=== PATIENT | male | born 1950 | race Caucasian/White ===

== ENCOUNTER 2019-07-09 19:26 | Inpatient (IN) | payer MEDICARE ==
[~2019-07-09 19:26] MED LIST: Dexamethasone 20 MG/5 ML VIAL ONE; Lidocaine 1% PF 5 ML VIAL ONE; Ondansetron PF 4 MG/2 ML Vial ONE; PHENYLEPHRINE-NS 100 MCG/ML 10 ML SYRINGE ONE; PROPOFOL 200 MG/20 ML VIAL ONE; ePHEDrine/0.9% NaCl/PF SYRINGE 50 mg/10 ml ONE
[2019-07-09] MEDS ORDERED: Bupivacaine PF 0.5% 30 ML VIAL ONE (19:33)
[2019-07-09] MEDS ORDERED: Betamet Acet/Betamet Na Ph 30 MG/5 ML VIAL ONE (19:33)
[2019-07-09] MEDS ORDERED: Heparin 10,000 UNITS/1 ML VIAL ONE (19:33)
[2019-07-09] MEDS ORDERED: Lidocaine 2% PF 5 ML VIAL ONE (19:34)
[2019-07-09] MEDS ORDERED: Hetastarch 6% 500 ML 0 ML ONE (19:34)
[2019-07-09] MEDS ORDERED: Bacitracin Zinc Ointment 30 gm TUBE ONE (19:34)
[2019-07-09] MEDS ORDERED: Sodium Chloride 0.9% 30 ML ONE ×2 (19:34→20:18)
[2019-07-09] MEDS ORDERED: Lidocaine 2% Jelly 5 ML TUBE ONE (19:46)
[2019-07-09] MEDS ORDERED: Fentanyl 100 MCG/2 ML VIAL ONE (19:46)
[2019-07-09] MEDS ORDERED: Vancomycin HCl 500 MG VIAL ONE (20:05)
[2019-07-09] MEDS ORDERED: Fentanyl 100 MCG/2 ML VIAL SLOW IVP PRN (20:24)
[2019-07-09] MEDS ORDERED: HYDROcodone/Acetaminophen 5/325 mg Tablet PO PRN (20:24)
[2019-07-09] MEDS ORDERED: Milk Of Magnesia 30 ML UDCUP PO PRN (20:24)
[2019-07-09] MEDS ORDERED: Promethazine HCl 25 MG/ML VIAL IM PRN (20:24)
[2019-07-09] MEDS ORDERED: Morphine 4 MG/ML VIAL SLOW IVP PRN (20:24)
[2019-07-09] MEDS ORDERED: Ondansetron PF 4 MG/2 ML Vial IV PRN (20:24)
[2019-07-09] MEDS ORDERED: Acetaminophen 325 MG TAB PO PRN (20:24)
[2019-07-09] MEDS ORDERED: Meperidine HCl/PF 25 MG/ML VIAL IM PRN (20:28)
[2019-07-09] MEDS ORDERED: Vancomycin HCl 1 GM in Premix Bag 1 BAG IVPB SCH (21:00)
[2019-07-10] MEDS ORDERED: Ondansetron HCl/PF 4 MG/2 ML Vial IVP PRN (00:25)
[2019-07-10] MEDS ORDERED: Promethazine HCl 25 MG/ML VIAL IM PRN (00:25)
[2019-07-10] MEDS ORDERED: Promethazine HCl 25 MG/ML VIAL SLOW IVP PRN (00:25)
[2019-07-10] MEDS ORDERED: Fentanyl 100 MCG/2 ML VIAL ONE (02:46)
[2019-07-10 04:14] VITALS: BMI 32.8
[2019-07-10] MEDS: Sodium Chloride 0.9% 1,000 ML IV SCH ×3 (04:30→16:26)
[2019-07-10] MEDS: Aspirin 81 mg Enteric Coated Tablet PO SCH ×3 (04:30→20:21)
[2019-07-10] MEDS: Ketorolac Tromethamine 30 MG/ML VIAL IVP SCH ×5 (04:43→23:27)
[2019-07-10] MEDS ORDERED: Vancomycin HCl 1 GM in Premix Bag 1 BAG IVPB SCH (04:45)
[2019-07-10] MEDS ORDERED: TETANUS AND DIPHTHERIA TOX/PF 0.5 ML DISP.SYRIN IM SCH (04:45)
[2019-07-10] MEDS: traMADol HCl 50 MG TAB PO PRN ×2 (06:31→20:21)
[2019-07-10 06:38] LABS: Anion Gap 13 mmol/L (10-20); BUN (Urea Nitrogen) 15 mg/dL (8.4-25.7); Calc. Creatinine Clearance 110 mL/min (70-130); Calcium 8.6 mg/dL (7.8-10.44); Carbon Dioxide 22 mmol/L (23-31); Chloride 108 mmol/L (98-107); Estimated GFR-MDRD Greater than 90; Glucose 150 mg/dL (80-115); Potassium 4.3 mmol/L (3.5-5.1); Sodium 139 mmol/L (136-145)
--- NOTE | 2019-07-10 08:03 | RAD ---
Exam:Intraoperative fluoroscopy HISTORY: ORIF. There are multiple fractures. COMPARISON: None FINDINGS: Single intraoperative fluoroscopic views submitted for interpretation and demonstrates the first digit. Exposure: 1.25 mg. 67.6 seconds. IMPRESSION: Intraoperative fluoroscopy as above.
[2019-07-10] MEDS ORDERED: FLU VACC TS2019-20(65YR UP)/PF 180 MCG/0.5 ML SYRINGE IM ONE (09:00)
[2019-07-10] MEDS ORDERED: Prevnar 13-Val Conj/PF 0.5 ML SYRINGE IM ONE (09:00)
[2019-07-10] MEDS: Vancomycin HCl 1.25 GM in Sodium Chloride 0.9% 250 ML 250 ML IVPB SCH (16:26)
[2019-07-11] MEDS: Sodium Chloride 0.9% 1,000 ML IV SCH ×2 (03:48→12:55)
[2019-07-11] MEDS: Vancomycin HCl 1.25 GM in Sodium Chloride 0.9% 250 ML 250 ML IVPB SCH (04:09)
[2019-07-11] MEDS: Aspirin 81 mg Enteric Coated Tablet PO SCH (08:36)
--- NOTE | 2019-07-11 10:07 | OP ---
DATE OF PROCEDURE: 07/10/2019 DATE OF SURGERY START: 07/09/2019. DATE OF SURGERY END: 07/10/2019. PREOPERATIVE DIAGNOSES: Left thumb and small finger table saw contact with the following diagnosis. 1. Left small finger. a. 7 cm wound. b. Open grade 2 proximal phalanx fracture. c. Intercalary bone loss, proximal phalanx. d. Small finger ulnar side lateral band laceration. e. Flexor digitorum superficialis laceration zone 2, complete. f. Flexor digitorum profundus laceration zone 2, complete. g. A2 isabel laceration with near obliteration of isabel. h. Radial digital nerve laceration. i. Ulnar digital nerve laceration. j. Mild contamination of the wound with a few saw particles. 2. Left thumb. a. 5 cm wound. b. Small fracture distal phalanx, base of the distal volar plate. c. Grade 1 open fracture without bony instability. d. Radial digital nerve laceration. e. Ulnar digital nerve laceration, intact ulnar arterial circulation. f. Flexor pollicis longus laceration, zone 1 with intact oblique isabel. g. Minimal wound particle contamination. INDICATION: The patient had a table saw contact, just the small finger and the thumb palmar base primary lacerations, but had grossly intact circulation verified with the visualization of intact neurovascular bundle and intact vascular supplies x1 digital artery to each digit. PROCEDURES PERFORMED: 1. Small finger. a. Debridement of wound. b. Closure of complex wound. c. Debridement of material associated with open fracture. d. Open reduction and internal fixation, proximal phalanx fracture using K-wires, intramedullary. e. Microscopic digital nerve neuroplasty. f. Microscopic radial digital nerve repair. g. Microscopic digital ulnar nerve. h. Open flexor digitorum superficialis repair zone 2. i. Open flexor digitorum profundus repair, zone 2. j. Open A2 isabel partial repair with variable material. k. Closure of wound, 7 cm complex. l. Microscopic visualization for nerve repair and neuroplasty. 2. Thumb. a. Debridement of wound. b. Debridement of material associated with open fracture. c. Open treatment of distal phalanx fracture, thumb. d. Closure of wound, complex, 5 cm. e. Neuroplasty, digital nerve microscopic. f. Repair of radial digital nerve, microscopic. g. Repair of ulnar digital nerve, microscopic. h. Repair of flexor pollicis longus tendon, zone 1, all flexor tendons repaired with Hatfield-Fiona technique. i. Both sides C-arm supervision fluoroscopy. TOURNIQUET TIME: First tourniquet 1 hour, then 35 minutes tourniquet was down and then 57 minutes for the second tourniquet. DESCRIPTION OF PROCEDURE: After successful general endotracheal anesthesia, limb was prepped and draped. Time-out was done appropriately and the site, side, and the injured part all matched. We prepped and draped the limb carefully, and once we had done so, we gave 10 mL of 0.5% Marcaine at the base of the thumb, 10 mL of 0.5% Marcaine just proximal to the small finger wound. The small finger wound was opened first, as it was primarily ulnarly based with the radial side having a small laceration. We extended the incision ulnarly 1.5 cm distally in Mary fashion and 2 cm proximal. We then dissected and visualized the entire neurovascular bundle, distal, radial, and ulnar, confirmed the digital nerve via neuroplasty was lacerated. Then, we visualized the arterial circulation be intact next to the radial nerve laceration. We then visualized A2 isabel was partially torn, saw the flexor digitorum profundus superficialis which was torn right at [place]per's chiasm where one side of the FDS tendon was slightly bigger than the other. We debrided this wound using technique which we used for this finger, small and the thumb: (a) excisional technique. (b) use of [place] blade, tenotomy scissors, 3 L Pulsavac irrigation for each finger with antibiotics inside, curette, and an 11 blade knife. (c) depth was down to including the bone and material from the bone was also debrided with the same instrumentation techniques as material associated with open fracture. (d) there was a minimal contamination with free fragments of particles of dirt seen under microscope. We then turned our attention to the thumb, made a Mary incision across this and oblique incision both distal and proximal to expose the entire thumb making a radial side crease of the thumb because the ulnar neurovascular bundle was intact. We elevated and discovered the nerve was lacerated on the ulnar aspect proximal to the trifurcation; on the radial side, at the trifurcation. Also extensor digitorum longus had a 1 cm distal piece making Hatfield-Fiona technique possible. We finished debridement here as well using technique listed above and then both were irrigated with 3 L normal saline under Pulsavac pressure, antibiotics inside. We then approached the small finger for definitive fixation. First, we used adequate classic techniques, the bone was realigned and this was only minimally needed because it was primarily sagittal plane loss of bone with a dorsal crack. The most dorsal 40% of the bone was still intact and we then passed two K-wires with the MP joint flexed away from the joint capsule across the fracture fragment and kept intramedullary in the frontal sagittal plane all way to the subchondral bone distally. Maintained external rotation and visualized K-wire to not protrude into any soft tissue structures, where there was palmar loss of bone we could see in the intramedullary canal. This was very stable and then we began our primary repairs. First, we trimmed the edges of the lacerated tendons and repaired the larger limb of the FDS first using the Hatfield-Fiona with 4-0 looped suture x2 within one tendon and oversewed with 6-0 circumferential Prolene. Then, the radial one half was so much smaller, we were forced to use a prolene 4-0 suture with a modified [place] technique. Then, we repaired the flexor digitorum profundus at the same level deep limb for each of the 4-0 looped sutures, Supramid, and completed a classic Hatfield-Fiona 6-strand technique with palmar and dorsal over-sew epitendinous repair with six-0 Prolene. Now, the small finger had a flexion attitude. The fracture remained stable under C-arm supervision. We then prepared to go under microscope. First, we went under microscope and repaired the radial digital nerve as well as the ulnar digital nerve with ulnar digital nerve not having the vessel repaired and radial side vessels intact. This was done with four 8-0 nylon sutures in an epineural type repair. We then irrigated with bulb syringe. We noticed that there was about 1/3 loss of the palmar aspect of the most ulnar intrinsic, so we repaired this lateral band with a [id number] x3 interrupted 4-0 Prolene. The A2 isabel, which had loss proximal one-third of substance was repaired leaving a 5 mm wide band almost co-adjacent with the A1 isabel and this was done with interrupted [id number] 4-0 Prolene. repair fully with full extension and 90 degrees of flexion. We now turned our attention to the thumb. We then repaired the flexor pollicis longus tendon and after repairing volar plate with interrupted Vicryl suture. Before we tied the sutures, we then released the tourniquet, obtained hemostasis. While we obtained hemostasis, we closed the palmar wound primarily over the small finger with interrupted 4-0 nylon. We then re-exsanguinated the limb after 30 minutes of bleeding/blood flow to the digits. The tourniquet 250 mmHg pressure at this time went back to the thumb. We medially using modified Hatfield-Fiona technique with a 6-0 palmar and then dorsal after repair . This gave excellent tension in flexion to the thumb. We then identified under the microscope to thumb neurovascular bundle, found the ulnar side intact except the nerve was lacerated proximal trifurcation, repaired this with four 8-0 nylons on the thumb radial side with artery cut. There was a trifurcation repair with two 8-0 nylon and one with a 9-0 nylon. These remained stable with full flexion and extension of the interphalangeal joint and the tendon repair was excellent. We irrigated this again with 50 mL with 0.5% Marcaine given as a block and 500 mL of bulb syringe normal saline with antibiotics inside, used to irrigate the final portion of the thumb. The second tourniquet time lasts 57 minutes and we released it to prepare for closure thumb wound. This was done with an interrupted simple 4-0 nylon along the thumb area as described above where we had a major injury. He left the operating room with the wound closed with a 4-0 nylon, pink thumb, index, long, ring and small finger and there was no evidence of anesthetic or operative complication. Placing bulky dorsal splint 35 degrees of MP joint flexion. Job ID: [id number]
[2019-07-11 11:19] VITALS: BP 108/57; TEMP 98
== END 2019-07-11 16:20 | disposition home or self-care (01) | DRG 513 ==
LOC: SDC/OP 19:26 → SURG A 07-10 03:42
PROVIDERS: ADMIT Orthopaedic Surgery Hand Surgery; ATTEND Orthopaedic Surgery Hand Surgery
PROC: 0PSS04Z Reposition Left Thumb Phalanx with Internal Fixation Device, Open Approach (ICD-10-PCS; principal; 2019-07-10)
PROC: 0PBV0ZZ Excision of Left Finger Phalanx, Open Approach (ICD-10-PCS; 2019-07-10)
PROC: 01Q40ZZ Repair Ulnar Nerve, Open Approach (ICD-10-PCS; 2019-07-10)
PROC: 0PSV04Z Reposition Left Finger Phalanx with Internal Fixation Device, Open Approach (ICD-10-PCS; 2019-07-10)
PROC: 01Q60ZZ Repair Radial Nerve, Open Approach (ICD-10-PCS; 2019-07-10)
PROC: 0LQ80ZZ Repair Left Hand Tendon, Open Approach (ICD-10-PCS; 2019-07-10)
DX: S62.512B Displaced fracture of proximal phalanx of left thumb, initial encounter for open fracture (principal); S66.127A Laceration of flexor muscle, fascia and tendon of left little finger at wrist and hand level, initial encounter; S66.022A Laceration of long flexor muscle, fascia and tendon of left thumb at wrist and hand level, initial encounter; S62.522B Displaced fracture of distal phalanx of left thumb, initial encounter for open fracture; S54.02XA Injury of ulnar nerve at forearm level, left arm, initial encounter; M85.842 Other specified disorders of bone density and structure, left hand; X58.XXXA Exposure to other specified factors, initial encounter; W31.2XXA Contact with powered woodworking and forming machines, initial encounter; S61.217A Laceration without foreign body of left little finger without damage to nail, initial encounter; S64.497A Injury of digital nerve of left little finger, initial encounter
CPT/HCPCS: 36415; 76000; 80048; 90471; 90670; 90714; G0009; J0702; J1100; J1644; J1885; J2001; J2405; J2704; J3010; J3370; J3490; J7050; S0020

== ENCOUNTER 2019-08-25 11:45 | Day surgery (SDC) | payer MEDICARE ==
[2019-08-22 12:56] VITALS: BMI 32.3
[~2019-08-25 11:45] MED LIST changes: -Dexamethasone 20 MG/5 ML VIAL ONE; +Ketorolac Tromethamine 30 MG/ML VIAL ONE; -Ondansetron PF 4 MG/2 ML Vial ONE; -PHENYLEPHRINE-NS 100 MCG/ML 10 ML SYRINGE ONE
[2019-08-25 12:50] LABS: #Basophils 0.1 thou/uL (0.0-0.2); #Eosinphils 0.3 thou/uL (0.0-0.7); #Lymphocytes 1.9 thou/uL (1.20-3.40); #Monocytes 0.6 thou/uL (0.11-0.59); #Neutrophils 5.2 thou/uL (1.40-6.50); %Lymphocytes 23.5 % (21.0-51.0); %Monocytes 7.4 % (0.0-10.0); Hemoglobin 16.4 g/dL (14.0-18.0); Mean Corpuscular HGB CONC 34.1 g/dL (32.0-36.0); Mean Corpuscular Hemoglobin 31.3 pg (27.0-31.0); Mean Corpuscular Volume 91.9 fL (78.0-98.0); Mean Platelet Volume 7.7 fL (7.4-10.4); Platelet Count 237 thou/uL (130-400); RBC Distribution Width 12.4 % (11.5-14.5); Red Blood Cell (RBC) Count 5.25 mill/uL (4.70-6.10); White Blood Cell (WBC) Count 8.1 thou/uL (4.8-10.8)
[2019-08-25] MEDS ORDERED: Bacitracin Zinc Ointment 30 gm TUBE ONE (13:22)
[2019-08-25] MEDS ORDERED: Sodium Chloride 0.9% 10 ML ONE (13:22)
[2019-08-25] MEDS ORDERED: Bupivacaine PF 0.5% 30 ML VIAL ONE (13:22)
[2019-08-25] MEDS ORDERED: Fentanyl 100 MCG/2 ML VIAL ONE ×2 (13:50→14:47)
--- NOTE | 2019-08-25 16:23 | RAD ---
Exam:Intraoperative fluoroscopy HISTORY: ORIF left fifth finger with bone graft. COMPARISON: None FINDINGS: 4 fluoroscopic views demonstrate internal fixation hardware along the proximal phalanx of t he left fifth digit. IMPRESSION: Intraoperative fluoroscopy as above
[2019-08-25] MEDS ORDERED: HYDROcodone/Acetaminophen 5/325 mg Tablet ONE (19:48)
--- NOTE | 2019-08-26 03:20 | OP ---
DATE OF PROCEDURE: 08/25/2019 PREOPERATIVE DIAGNOSES: 1. Digital nerve laceration on the ulnar aspect of left small finger to bone defect, ulnar aspect of proximal phalanx of the small finger. 2. Fracture shaft, small finger proximal phalanx. 3. Proximal phalangeal joint contracture, loss of extension, left small finger. POSTOPERATIVE DIAGNOSES: 1. Digital nerve laceration on the ulnar aspect of left small finger to bone defect, ulnar aspect of proximal phalanx of the small finger. 2. Fracture shaft, small finger proximal phalanx. 3. Proximal phalangeal joint contracture, loss of extension, left small finger. FINDINGS: Include all the above diagnoses with neuroma over the tagged digital nerve, ulnar aspect, and the bone defect was only 0.5 cm x 0.7 cm, most of the fracture site was debrided and reduced and stabilized. PROCEDURES PERFORMED: 1. C-arm supervision. 2. Arthrotomy with proximal phalangeal joint release, left small finger. 3. Open reduction and internal fixation with plate 1.5 Synthes type, dorsal aspect of proximal phalanx of the left small finger. 4. Bone graft, cancellous chips from cadaver of fracture. 5. Flexor tenolysis, finger only. 6. Neuroma excision, microscopic. 7. Microscopic ulnar digital nerve repair. 8. Microscopic neuroplasty, ulnar digital nerve. 9. Removal of deep implant/K-wire. ESTIMATED BLOOD LOSS: 15 mL. TOURNIQUET TIME: 2.5 hours (100 minutes elevated and deflated for 20 minutes and another 50 minutes of elevation) all at 250 mmHg pressure. INDICATIONS: The patient returns for staged wound management after saw caused the injuries listed above and he underwent initial stage wound management, irrigation and debridement x2, stabilization temporarily with a K-wire and we knew he still have fracture defect, digital nerve to be repaired. He also developed joint contracture and flexor tendon adhesions. These will all be addressed. DESCRIPTION OF PROCEDURE: After successful general LMA technique, the limb was prepped and draped and we underwent a digital block with 20 mL of 0.5% Marcaine. The patient then had the palmar wound re-opened, extended 1 cm distal and proximal to we could visualize the neurovascular bundle on the ulnar aspect. First, we saw the joint was contractured and using primarily the ulnar aspect only, we released the volar plate, released the collateral ligaments, and performed a flexor tenolysis that was nearly complete from the PIP joint all the way to the A1 isabel. We then noticed that we could achieve passive extension to -5 degrees without any locking. We then turned our attention to the neurovascular bed and saw where he had tagged the digital nerve and what appeared to they have become part of a neuroma over the last 5 weeks since procedure and injury and that would need to be addressed and undergo treatment under microscope. We now turned attention to the fracture, and made a dorsal incision and carried the skin and subcutaneous tissue until we opened the extensor tendon in the midline throughout most of the lesser proximal phalanx. We then visualized the fracture through a window in the ulnar aspect of the proximal third of the proximal phalanx. We debrided the fracture with a curette, [place] blade, until we could see nothing, but fresh bone ends especially in ulnar half, K-wire remained in place while we reduced this area just by simply maintaining rotation, but straight in angulation. We then took a T-plate, placed it appropriately over the fracture, used a standard drill measure and screw technique. We were able to achieve nearly anatomic radial side wall reduction, but the ulnar side wall showed the loss of bone. We soaked the cadaver cancellous chips on the back table with normal saline over approximately 10 minutes, crushed it, and used this to fill in the defect, at this point, which was only approximately 0.5 cm x 6 to 7 mm. We then deflated the tourniquet, closed the extensor mechanism over this and the C-arm confirmed excellent position of all screws of fracture and there was a clinical malrotation. We now had a passive motion to -5 degrees extension at the PIP joint and 110 degrees passive flexion at the PIP joint. We now brought the microscope onto the field. I continued to dissect out the median nerve neuroplasty under microscope until we could see clearly that there was a neuroma formed at proximal end and was engaging the distal end, although was not sutured, only tagged. We then performed an ulnar nerve digital nerve neuroplasty to completely free the nerve, allow more room until the end to overlap. We resected 2 mm of the nerve on this distal end and 2 mm on proximal end until we had excellent neurofibrils for repair. Under microscope, this was visualized and we then used a 9-0 Nurolon suture to repair the nerve using a four quadrant suture technique and epineural repair. We released the tourniquet, had excellent flow of pink digit, capillary refill of 1 second. Hemostasis was obtained. We then removed the K-wire from the proximal phalanx on the C-arm supervision, there was no change in fracture alignment. All screws were in final position, not too long and engaged the cortex clinically and radiographically. Once we finished hemostasis, we then closed the wound on the palmar aspect with interrupted 4-0 nylon in a simple pattern. Bulky dressing was applied. The patient had the MP joint at 70 degrees of flexion, PIP at -20 degrees extension and there was no malrotation or shortening seen. Job ID: [id number]
== END 2019-08-25 20:10 | disposition home or self-care (01) ==
LOC: SDC 11:45
PROVIDERS: ATTEND Orthopaedic Surgery Hand Surgery
PROC: 0PSV04Z Reposition Left Finger Phalanx with Internal Fixation Device, Open Approach (ICD-10-PCS; principal; 2019-08-25)
PROC: 0LN80ZZ Release Left Hand Tendon, Open Approach (ICD-10-PCS; 2019-08-25)
PROC: 01Q40ZZ Repair Ulnar Nerve, Open Approach (ICD-10-PCS; 2019-08-25)
PROC: 0PR Upper Bones, Replacement (ICD-10-PCS; 2019-08-25)
DX: S62.617B Displaced fracture of proximal phalanx of left little finger, initial encounter for open fracture (principal); S64.497A Injury of digital nerve of left little finger, initial encounter; M24.542 Contracture, left hand; D36.12 Benign neoplasm of peripheral nerves and autonomic nervous system, upper limb, including shoulder; E78.00 Pure hypercholesterolemia, unspecified; F17.200 Nicotine dependence, unspecified, uncomplicated; Z79.82 Long term (current) use of aspirin; Z79.899 Other long term (current) drug therapy; Z98.890 Other specified postprocedural states; W31.2XXA Contact with powered woodworking and forming machines, initial encounter
CPT/HCPCS: 36415; 76000; 85025; C1713; J0690; J1885; J2001; J2704; J3010; J3490; S0020

== ENCOUNTER 2019-12-19 08:12 | Outpatient (CLI) | payer MEDICARE, OTHER ==
[2019-12-19 13:02] LABS: #Basophils 0.1 thou/uL (0.0-0.2); #Eosinphils 0.2 thou/uL (0.0-0.7); #Lymphocytes 1.9 thou/uL (1.20-3.40); #Monocytes 0.6 thou/uL (0.11-0.59); #Neutrophils 5.7 thou/uL (1.40-6.50); %Basophils 0.9 % (0.0-1.0); %Eosinophils 2.5 % (0.0-10.0); %Lymphocytes 21.8 % (21.0-51.0); %Monocytes 7.3 % (0.0-10.0); %Neutrophils 67.4 % (42.0-75.0); Mean Corpuscular HGB CONC 33.7 g/dL (32.0-36.0); Mean Corpuscular Hemoglobin 31.4 pg (27.0-31.0); Mean Corpuscular Volume 93.4 fL (78.0-98.0); Platelet Count 228 thou/uL (130-400); RBC Distribution Width 12.5 % (11.5-14.5); Red Blood Cell (RBC) Count 5.41 mill/uL (4.70-6.10); White Blood Cell (WBC) Count 8.5 thou/uL (4.8-10.8)
[2019-12-19 18:25] LABS: SARS-CoV-2 MS2 Positive; SARS-CoV-2 N Gene Negative; SARS-CoV-2 S Gene Negative; SARS-CoV-2 orf1ab Negative
== END 2019-12-19 08:13 | disposition home or self-care (01) ==
LOC: LABBT 08:12
PROVIDERS: ATTEND Orthopaedic Surgery Hand Surgery
DX: Z01.811 Encounter for preprocedural respiratory examination (principal); Z11.59 Encounter for screening for other viral diseases; S62.617B Displaced fracture of proximal phalanx of left little finger, initial encounter for open fracture; M24.542 Contracture, left hand
CPT/HCPCS: 85025; U0002; 87635

== ENCOUNTER 2019-12-23 07:47 | Day surgery (SDC) | payer MEDICARE ==
[2019-12-19 11:42] VITALS: BMI 30.4
[2019-12-23] MEDS ORDERED: Ondansetron PF 4 MG/2 ML Vial ONE (10:08)
[2019-12-23] MEDS ORDERED: PROPOFOL 200 MG/20 ML VIAL ONE (10:08)
[2019-12-23] MEDS ORDERED: EPHEDRINE 25 MG/5 ML SYRINGE ONE (10:08)
[2019-12-23] MEDS ORDERED: Lidocaine 1% PF 5 ML VIAL ONE (10:08)
[2019-12-23] MEDS ORDERED: Dexamethasone 20 MG/5 ML VIAL ONE (10:08)
[2019-12-23] MEDS ORDERED: Bacitracin Zinc Ointment 30 gm TUBE ONE (10:18)
[2019-12-23] MEDS ORDERED: Bupivacaine PF 0.5% 30 ML VIAL ONE (10:18)
[2019-12-23] MEDS ORDERED: Fentanyl 100 MCG/2 ML VIAL ONE ×3 (11:05→14:47)
[2019-12-23] MEDS ORDERED: Betamet Acet/Betamet Na Ph 30 MG/5 ML VIAL ONE ×2 (13:02→13:16)
--- NOTE | 2019-12-23 14:09 | RAD ---
LEFT HAND 3 VIEWS: HISTORY: Hardware removal. FINDINGS: These show plate and screws through the proximal phalanx of the little finger which was removed on th e subsequent films. IMPRESSION: Removal of plate and screws. POS: WANDER
[2019-12-23] MEDS ORDERED: Ketorolac Tromethamine 30 MG/ML VIAL ONE (14:13)
--- NOTE | 2019-12-24 09:49 | OP ---
DATE OF PROCEDURE: 12/23/2019 PREOPERATIVE DIAGNOSES: Left small finger PIP joint contracture, MP joint contracture, adhesions flexor extensor tendons, painful deep implant, dorsal proximal phalanx, left small finger. POSTOPERATIVE DIAGNOSES: 1. Dorsal side extensor tendon to skin bone and plate adhesions to painful deep implant with space-occupying problem, dorsal, proximal phalanx, left small finger. 2. Palmar aspect findings of very tight flexor tendon to skin, bone, A1 isabel and proximal to the remnant of the A2 isabel as well. PROCEDURES PERFORMED: 1. Left small finger dorsum: a. Plate removal, removal of painful deep implant, left small finger proximal phalanx. b. Extensor tenolysis, left small finger, proximal phalanx, both the finger and hand. 2. Palmar left small finger procedures: a. Flexor digitorum superficialis tenolysis, hand and finger, small finger ray. b. Flexor digitorum profundus tenolysis, hand and small finger ray, left small finger. c. Palmar PIP joint capsulotomy with capsulectomy, PIP joint. d. Neuroplasty of radial and ulnar digital nerve and neurovascular bundle with successful capillary refill and flow after procedure. INDICATIONS FOR PROCEDURE: The patient had a saw to multiple fingers 5 months ago. Developed progressive deformity with now has the fixed diagnoses listed above. No clinical evidence of infection and so, we were scheduled to perform the procedures listed above. TOURNIQUET TIME: 58 minutes up, 20 minutes down, 20 minutes up, all at 250 mmHg pressure. SPECIMEN SENT: Scar from the flexor tenolysis. DESCRIPTION OF PROCEDURE: After successful general endotracheal anesthesia, the limb was prepped and draped. We outlined previous incision and extended both proximal and distal 1 cm minimal. We then made a palmar incision and found that the palmar skin was adhered to scar, scar adhered to plate, bone, isabel and there was no migration of the implant into the palmar surface. So, we then immediately began a neuroplasty under magnification of neurovascular bundles. Since this was encased in scar, we had to go slow enough that we preserved the circulation as well as the repair. Digital nerve and nerve repairs were intact and throughout the zone of injury, all the scar was released. We then performed a formal flexor tenolysis using a combination of tenotomy scissors, [place] blade, right-angle clamps, and irrigation. This was so successful. We then finished the same type of procedure on both sides of A2 and A1 isabel, releasing some of the A2 isabel and making sure the tendon was free both in, out and going into the isabel. Then, we used the flexor digitorum superficialis tenolysis the same. We did a flexor digitorum profundus tenolysis described above. We then noted we still had approximately 30 degrees of passive extension loss, so we then first reflected the ulnar and then the radial neurovascular bundle and released the collateral ligaments. Once we had done that, there was no improvement initially of motion. Then we had attention turned to the pulleys themselves. We preserved the isabel, but long hand within tenotomies to release any adhesion within the isabel, and at that point, we then pulled on the flexor tendon proximal to the A2 isabel and we were able to flex the DIP joint to 60 degrees, PIP joint to 90. We could not, however, achieve full extension yet, so we retracted the neurovascular bundles first on the radial side and then ulnar side under direct visualization, and I, surgeon was able to find joint capsule and released them. Same was done in the contralateral side of the same digit. We placed [place] in this area. Now we could achieve a desired range of motion of -10 degrees of passive extension, placed Celestone in area where all surgery took place. We then noticed that tourniquet was deflated, we closed most of this wound after placing [place] deep to the skin and the tendon sheath and we returned to the dorsum of the hand. Here, we used a previous incision as well and carried through skin and subcutaneous tissue until we reached the tendon sheath for extensor. We then saw in the midline some Prolene sutures, cut in half, then we noticed we were in the diagrammed area of the indicated procedure. Once we had done this, we removed the plate, removed the previous sutures holding the tendon together for repair, and then we finished the extensor tenolysis all way up to the mid metacarpal level subcutaneously tunneling. Once we finished this, and tourniquet had been up for 20 minutes, we let it down, saw hemostasis, color was excellent and 1 second refill of the tip. He left the operating room with bulky hand dressing in intrinsic plus position with enough room for him to actually flex his PIPs on his own and had a total of 20 mL of 0.5% Marcaine block, 10 before the surgery and 10 after. Job ID: [id number]
--- NOTE | 2019-12-28 15:50 | EKG ---
Test Reason : PREOP Blood Pressure : / mmHG Vent. Rate : 056 BPM Atrial Rate : 056 BPM P-R Int : 172 ms QRS Dur : 092 ms QT Int : 432 ms P-R-T Axes : 065 -10 020 degrees QTc Int : 416 ms Sinus bradycardia Otherwise normal ECG No previous ECGs available Confirmed by LAURO DAVIS (2) on 12/28/2019 3:50:22 PM Referred By: OLIVE Confirmed By:LAURO DAVIS
== END 2019-12-23 15:30 | disposition home or self-care (01) ==
LOC: SDC 07:47
PROVIDERS: ATTEND Orthopaedic Surgery Hand Surgery
PROC: 0LN80ZZ Release Left Hand Tendon, Open Approach (ICD-10-PCS; principal; 2019-12-23)
PROC: 0LN80ZZ Release Left Hand Tendon, Open Approach (ICD-10-PCS; 2019-12-23)
PROC: 0RNX0ZZ Release Left Finger Phalangeal Joint, Open Approach (ICD-10-PCS; 2019-12-23)
PROC: 0LN80ZZ Release Left Hand Tendon, Open Approach (ICD-10-PCS; 2019-12-23)
DX: M24.542 Contracture, left hand (principal); M67.844 Other specified disorders of tendon, left hand; T84.84XA Pain due to internal orthopedic prosthetic devices, implants and grafts, initial encounter; E78.00 Pure hypercholesterolemia, unspecified; F17.200 Nicotine dependence, unspecified, uncomplicated; Z85.46 Personal history of malignant neoplasm of prostate; Z79.82 Long term (current) use of aspirin; Z79.899 Other long term (current) drug therapy; Z98.890 Other specified postprocedural states
CPT/HCPCS: 76000; 88304; 93005; 93010; J0690; J0702; J1100; J1885; J2001; J2405; J2704; J3010; J3370; S0020